=== PATIENT | female | born 1975 | race Caucasian/White ===

== ENCOUNTER 2024-04-06 01:02 | Day surgery (SDC) | payer BC, SELFPAY ==
[2024-03-31 15:14] VITALS: BMI 19.5
[2024-04-06 06:31] VITALS: BP 113/67; PULSE 81; RESP 20; TEMP 36.2; O2SAT 100
[2024-04-06] MEDS: LACTATED RINGERS 1,000 ML 150 ML IV CONT (06:47)
--- NOTE | 2024-04-06 07:25 | WPDANESEPPF ---
Anes - Initial Pre Proc Eval Procedure: Operation Date: 04/06/24 07:30 Proposed Procedures p Screening Colonoscopy - Doug Tim DO Date/Time: 04/06/24 07:25 Surgeon: Doug Tim DO Pre Op Diagnosis: Screening for malignant neoplasm of colon Patient Data Age: 48 Gender: F Height: 1.7 m Weight: 55.3 kg Last Vital Signs Temp 97.1 F L 04/06/24 06:31 Pulse 81 04/06/24 06:31 Resp 20 04/06/24 06:31 BP 113/67 04/06/24 06:31 Pulse Ox 100 04/06/24 06:31 O2 Del Method Room Air 04/06/24 06:31 Allergies Allergy/AdvReac Type Severity Reaction Status Date / Time No Known Allergies Allergy Unverified 04/06/24 06:27 Home Medications Medication Instructions Recorded Confirmed Type levothyroxine 50 mcg tablet 50 mcg PO DAILY #90 tabs 11/23/23 03/31/24 Rx Patient hx anesthesia problems: none Family hx anesthesia problems: none Results Review: All pre-operative results and documents have been reviewed as part of the pre-operative evaluation. [facility] Past Medical History Medical History Lupus Thyroid disease Wellness examination Surgical History Surgical History H/O breast biopsy History of appendectomy Family History Family History Mother Patient's mother is in good health Sibling Patient's brother is in good health Social History Social History (Updated 03/03/24 @ 10:27 by Edita Hung) Social History: Years smoked: 15 Smoking status: Former smoker Tobacco type: cigarettes Second hand tobacco smoke exposure: No Alcohol intake: current Substance use: never Substance use type: does not use Do You Feel Safe in your Home?: Yes Lack of Transportation: No Lack of Food: Never True Current Housing: I Have Housing Concerned About Future Housing: No Difficulty Paying Gas/Electric Bills: No Difficulty Paying for Meds: No Currently Unemployed: No Education: High School Diploma/GED Difficulty w/ Childcare or Family Care: No Living arrangements: with family Occupation/Education: occupation Gender identity (if verbalized by the patient): Female Sexual Orientation (if Verbalized by the Patient): Straight or Heterosexual Spiritual care concerns: No Anes - Eval Final PreProcedure Day of Procedure 04/06/24 07:25 Patient weight: normal Heart: regular rate and rhythm Lungs: clear to auscultation Airway: Mallampati scale class II Neurological: alert and oriented Last oral intake: >/= 8 hours ASA classification: III Emergent: no Anesthetic plan: proceed Anesthesia type and monitoring: general GIVS and standard monitoring Results Review: All pre-operative results and documents have been reviewed as part of the pre-operative evaluation. Informed Consent: The patient's anesthetic plan and its attendant risks and benefits were discussed with the patient/family/POA. Questions were solicited and answers provided to the satisfaction of the patient/family/POA.
--- NOTE | 2024-04-06 07:30 | PM.IMHP ---
H&P: HPI History of Present Illness Date/Time: 04/06/24 07:30 Chief Complaint: Screening for colorectal cancer Narrative: this is a 48-year-old woman who presents for colonoscopy. She has never had a colonoscopy before. She denies any hematochezia or melena. She denies family history of colon cancer. Review of Systems Review of Systems: All systems reviewed & are unremarkable except as noted in HPI and below Constitutional: Constitutional: Denies chills, Denies fever(s), Denies headache(s) and Denies weight loss Eyes: Eyes: Denies change in vision ENT: Denies dizziness, Denies headache(s), Denies neck mass and Denies throat swelling Cardiovascular: Cardiovascular: Denies chest pain, Denies lightheadedness and Denies dyspnea Respiratory: Respiratory: Denies cough, Denies dyspnea and Denies wheezing Gastrointestinal: Gastrointestinal: Denies abdominal pain, Denies change in bowel habits, Denies nausea and Denies vomiting Genitourinary: Genitourinary: Denies hematuria and Denies dysuria Musculoskeletal: Musculoskeletal: Reports as per HPI Integumentary/Breasts: Skin/Breast: Reports as per HPI Neurologic: Denies dizziness and Denies headache(s) Allergic/Immunologic: Allergic/Immunologic: Denies throat swelling and Denies wheezing PMFSH Past Medical History Medical History Lupus Thyroid disease Wellness examination Surgical History Surgical History H/O breast biopsy History of appendectomy Family History Family History Mother Patient's mother is in good health Sibling Patient's brother is in good health Social History Social History (Updated 03/03/24 @ 10:27 by Edita Hung) Social History: Years smoked: 15 Smoking status: Former smoker Tobacco type: cigarettes Second hand tobacco smoke exposure: No Alcohol intake: current Substance use: never Substance use type: does not use Do You Feel Safe in your Home?: Yes Lack of Transportation: No Lack of Food: Never True Current Housing: I Have Housing Concerned About Future Housing: No Difficulty Paying Gas/Electric Bills: No Difficulty Paying for Meds: No Currently Unemployed: No Education: High School Diploma/GED Difficulty w/ Childcare or Family Care: No Living arrangements: with family Occupation/Education: occupation Gender identity (if verbalized by the patient): Female Sexual Orientation (if Verbalized by the Patient): Straight or Heterosexual Spiritual care concerns: No Meds Home Medications and Allergies Home Medications Medication Instructions Recorded Confirmed Type levothyroxine 50 mcg tablet 50 mcg PO DAILY #90 tabs 11/23/23 03/31/24 Rx Allergies Allergy/AdvReac Type Severity Reaction Status Date / Time No Known Allergies Allergy Unverified 04/06/24 06:27 Vital Signs Vital Signs - 24 hr 04/06/24 06:31 Temperature 36.2 C L Pulse Rate 81 Respiratory Rate 20 Blood Pressure 113/67 Pulse Oximetry 100 Oxygen Delivery Room Air Exam Const: General: no acute distress and alert Orientation/consciousness: patient oriented x3 HENMT: Head: normocephalic and atraumatic Ears: hearing grossly normal bilaterally Face/Nose/Sinus: Normal nares present Mouth: Yes Normal oral and palatal mucosa present Eyes: Periorbital: periorbital findings normal Sclera: sclerae normal EOM: EOMs intact bilaterally Neck: Neck: normal visual inspection, no lymphadenopathy and trachea midline Chest: Chest palpation & inspection: normal inspection of the chest Resp: Effort & Inspection: normal respiratory effort Auscultation: clear to auscultation bilaterally Cardio: Jugular venous distension: no JVD Rate: regular rate Rhythm: regular rhythm Heart sounds: S1 normal heart sound present and S2 normal heart sound
[2024-04-06 07:54] VITALS: BP 99/60; PULSE 73; RESP 18; O2SAT 100
[2024-04-06 08:04] VITALS: BP 104/63; PULSE 79; RESP 20; O2SAT 99
[2024-04-06 08:14] VITALS: BP 112/68; PULSE 67; RESP 20; O2SAT 100
--- NOTE | 2024-04-06 08:31 | SUR.PHASEII ---
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
== END 2024-04-06 08:30 | disposition home or self-care (01) ==
PROVIDERS: PCP Family Medicine; Visit Provider Surgery
PROC: 0DJD8ZZ Inspection of Lower Intestinal Tract, Via Natural or Artificial Opening Endoscopic (ICD-10-PCS; CPT 45378; principal; 2024-04-06 07:30)
DX: Z12.11 Encounter for screening for malignant neoplasm of colon (principal); E07.9 Disorder of thyroid, unspecified; M32.9 Systemic lupus erythematosus, unspecified; Z98.890 Other specified postprocedural states; Z87.891 Personal history of nicotine dependence
CPT/HCPCS: 45378; J7120

== ENCOUNTER 2024-06-20 16:29 | Outpatient (CLI) | payer BC, SELFPAY ==
--- NOTE | ~2024-06-20 | XR_ITS ---
EXAMINATION: XR chest 2V 06/20/2024 16:40 INDICATION: Dry cough PROCEDURE: 2 view chest COMPARISON: No prior studies for comparison. FINDINGS: The lungs are clear. The cardiomediastinal silhouette is within normal limits. There are no pleural effusions. There is no pneumothorax suspected. IMPRESSION: 1: NO ACUTE CARDIOPULMONARY DISEASE. Reviewed, dictated and finalized at location B.
== END 2024-06-20 16:30 | disposition home or self-care (01) ==
LOC: ANHIMG 16:29
PROVIDERS: PCP Family Medicine; Visit Provider Family Medicine
DX: R05.9 Cough, unspecified (principal)
CPT/HCPCS: 71046